=== PATIENT | male | born 1970 | race Caucasian/White ===

== ENCOUNTER 2016-09-04 10:45 | Emergency (ER) | payer BC, MEDICAID, SELFPAY ==
--- NOTE | 2016-09-04 12:20 | EDDOCDS ---
Nurse's Notes [facility] Name: Celso Caicedo Age: 46 yrs Sex: Male : 1970 Arrival Date: 09/04/2016 Time: 10:45 Bed I5 / M5 Private MD: Eliza Olvera PA-C. Diagnosis: Injury of muscle, fascia and tendon of long head of biceps-clinical tendon rupture Presentation: 09/04 10:50 Presenting complaint: Patient states: injured right bicep this am lifting on heavy j tire. has swelling on bicep. denies other injuries. hurts to move arm. Adult Sepsis Screening: The patient does not have new or worsening altered mentation. Patient's respiratory rate is less than 22. Systolic blood pressure is greater than 100. Patient has a qSOFA score of 0- Negative Sepsis Screen. Suicide/Homicide risk assessment- the patient denies having any suicidal and/or homicidal ideations and does not present with any other emotional, behavioral or mental health complaints. Status: Patient is not a atm servicer or dependent. Transition of care: patient was not received from another setting of care. 10:50 Acuity: SOL Level 4 bcj 10:50 Method Of Arrival: Walkin/Carried/Asstd bcj Triage Assessment: 10:53 General: Appears in no apparent distress, comfortable, Behavior is cooperative. Pain: bcj Location: right arm Pain currently is 8 out of 10 on a pain scale. HIV screening NA for this visit Offered previously. Musculoskeletal: Circulation, motion, and sensation intact. Historical: - Allergies: no known allergies; - Home Meds: 1. none - PMHx: none; - PSHx: none; - Social history: Smoking status: Patient states was never smoker of tobacco. No barriers to communication noted, The patient speaks fluent Yakut, Speaks appropriately for age. - Family history: Not pertinent. - : The pt / caregiver states he / she is not on anticoagulants. Home medication list is obtained from the patient. - Exposure Risk Screening:: None identified. Screenin:42 Screening information is obtained from the patient. Fall risk: No risks identified. kr3 Assistance ADL's: requires no assistance with activities of daily living. Abuse/DV Screen: The patient / caregiver reports he/she is: not in a situation that causes fear, pain or injury. Nutritional screening: No deficits noted. Advance Directives: Currently, there is no health care proxy. home support is adequate. Assessment: 11:42 General: Appears uncomfortable, Behavior is cooperative. Pain: Location: right bicep kr3 Pain currently is 8 out of 10 on a pain scale. Neurological: No deficits noted. Respiratory: Respiratory effort is even, unlabored. Derm: Skin is normal. Musculoskeletal: Range of motion intact in all extremities. CSM intact right hand. 12:17 General: Appears arm sling applied. 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 encouraged little use of arm jmk with NO lifting. . Vital Signs: 10:47 BP 152 / 93; Pulse 88; Resp 18; Temp 96.0; Pulse Ox 100% ; Weight 120.2 kg; Height 6 elp ft. 0 in. (182.88 cm); Pain 8/10; 12:15 BP 143 / 83; Pulse 86; Resp 18; Temp 98.1(O); Pulse Ox 94% on R/A; Pain 3/10; dem1 10:47 Body Mass Index 35.94 (120.20 kg, 182.88 cm) [facility] Vitals: 10:47 Log In Time: September 04, 2016 at 10:45. [facility] ED Course: 10:46 Patient visited by Penny Ochoa PCA. elp 10:46 Eliza Olvera is Private Physician. elp 10:46 Patient moved to Waiting elp 10:47 Patient visited by Penny Ochoa PCA. elp 10:47 Patient moved to Pre RCE elp 10:52 Triage Initiated bcj 10:53 Patient visited by Ralf Mathews RN. bcj 11:24 Patient moved to Triage 2 ct3 11:28 [facility] ar2 11:29 Eron Villalobos MD is Attending Physician. ar2 11:29 Patient visited by Kemar Snyder PA-C. ar2 11:38 Patient moved to I5 / M5 rs3 11:43 The patient / caregiver is instructed regarding the plan of care and ED course. kr3 Accompanied by Family Member, Patient has correct armband on for positive identification. Placed in gown. Bed in low position. Call light in reach. Side rails up X 1. 12:08 Hernan Arellano is Referral Physician. ar2 12:15 Sling applied to right arm. dem1 12:16 Patient visited by Jerri Montana. dem1 12:17 No IV's were initiated during this patient's visit. No procedures done that require jmk assistance. Order Results: There are currently no results for this order. Outcome: 12:09 Discharge ordered by Provider. ar2 12:17 Discharge Assessment: Patient awake, alert and oriented x 3. No cognitive and/or jmk functional deficits noted. Patient verbalized understanding of disposition instructions. patient administered narcotics - no. The following High Risk Discharge criteria are identified: None. Condition: good. Discharge instructions given to patient, Instructed on discharge instructions, follow up and referral plans. medication usage, Demonstrated understanding of instructions, medications, Pt was receptive of discharge instructions/ teaching. No special radiology studies were completed. Property :Personal belongings accompany Pt. 12:18 Patient left the ED. k Signatures: Ralf Mathews, RN RN David MunozRN RN Stephanie Fitzgerald RN RN kr3 Kemar Snyder, PA-Milo PA-Milo ar2 Bhargavi Howe,RN RN rs3 Kori Maldonado, ROUTE CARRIER ROUTE CARRIER ct3 Jerri Montana dem1 Penny Ochoa, ROUTE CARRIER ROUTE CARRIER elp MTDD
--- NOTE | 2016-09-04 12:20 | EDDOCDS ---
Physician Documentation [facility] Name: Celso Caicedo Age: 46 yrs Sex: Male : 1970 Arrival Date: 09/04/2016 Time: 10:45 Bed I5 / M5 Private MD: Eliza Olvera PA-C. Disposition: 09/04/16 12:09 Discharged to Home/Self Care. Impression: Injury of muscle, fascia and tendon of long head of biceps - clinical tendon rupture. - Condition is Stable. - Discharge Instructions: Tendon Injury, Arm Sling Use, [id number]. - Medication Reconciliation, Local Pharmacy Hours form. - Follow up: Hernan Arellano; When: Call to arrange an appointment; Reason: Further diagnostic work-up, Recheck today's complaints. - Problem is new. - Symptoms are unchanged. - Notes: keep arm in sling, call orthopedic office today to schedule follow up early next week. NO LIFTING WITH RIGHT ARM. Historical: - Allergies: no known allergies; - Home Meds: 1. none - PMHx: none; - PSHx: none; - Social history: Smoking status: Patient states was never smoker of tobacco. No barriers to communication noted, The patient speaks fluent Icelandic, Speaks appropriately for age. - Family history: Not pertinent. - : The pt / caregiver states he / she is not on anticoagulants. Home medication list is obtained from the patient. - Exposure Risk Screening:: None identified. Vital Signs: 09/04 10:47 BP 152 / 93; Pulse 88; Resp 18; Temp 96.0; Pulse Ox 100% ; Weight 120.2 kg / 265 lbs; elp Height 6 ft. 0 in. (182.88 cm); Pain 8/10; 12:15 BP 143 / 83; Pulse 86; Resp 18; Temp 98.1(O); Pulse Ox 94% on R/A; Pain 3/10; dem1 10:47 Body Mass Index 35.94 (120.20 kg, 182.88 cm) elp MDM: 11:39 NOTHING BY MOUTH+DIET ordered. EDMS 11:53 Sling ordered. ar2 Signatures: Dispatcher [employer] EDMS Ralf Mathews RN RN David Munoz RN RN jmk Robertshaw, Kemar, PA-C PA-C ar2 MTDD
--- NOTE | 2016-09-06 13:19 | EDDOCDS ---
Nurse's Notes [facility] Name: Celso Caicedo Age: 46 yrs Sex: Male : 1970 Arrival Date: 09/04/2016 Time: 10:45 Bed I5 / M5 Private MD: Eliza Olvera PA-C. Diagnosis: Injury of muscle, fascia and tendon of long head of biceps-clinical tendon rupture Presentation: 09/04 10:50 Presenting complaint: Patient states: injured right bicep this am lifting on heavy j tire. has swelling on bicep. denies other injuries. hurts to move arm. Adult Sepsis Screening: The patient does not have new or worsening altered mentation. Patient's respiratory rate is less than 22. Systolic blood pressure is greater than 100. Patient has a qSOFA score of 0- Negative Sepsis Screen. Suicide/Homicide risk assessment- the patient denies having any suicidal and/or homicidal ideations and does not present with any other emotional, behavioral or mental health complaints. 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 Transition of care: patient was not received from another setting of care. 10:50 Acuity: SOL Level 4 bcj 10:50 Method Of Arrival: Walkin/Carried/Asstd bcj Triage Assessment: 10:53 General: Appears in no apparent distress, comfortable, Behavior is cooperative. Pain: bcj Location: right arm Pain currently is 8 out of 10 on a pain scale. HIV screening NA for this visit Offered previously. Musculoskeletal: Circulation, motion, and sensation intact. Historical: - Allergies: no known allergies; - Home Meds: 1. none - PMHx: none; - PSHx: none; - Social history: Smoking status: Patient states was never smoker of tobacco. No barriers to communication noted, The patient speaks fluent Syriac, Speaks appropriately for age. - Family history: Not pertinent. - : The pt / caregiver states he / she is not on anticoagulants. Home medication list is obtained from the patient. - Exposure Risk Screening:: None identified. Screenin:42 Screening information is obtained from the patient. Fall risk: No risks identified. kr3 Assistance ADL's: requires no assistance with activities of daily living. Abuse/DV Screen: The patient / caregiver reports he/she is: not in a situation that causes fear, pain or injury. Nutritional screening: No deficits noted. Advance Directives: Currently, there is no health care proxy. home support is adequate. Assessment: 11:42 General: Appears uncomfortable, Behavior is cooperative. Pain: Location: right bicep kr3 Pain currently is 8 out of 10 on a pain scale. Neurological: No deficits noted. Respiratory: Respiratory effort is even, unlabored. Derm: Skin is normal. Musculoskeletal: Range of motion intact in all extremities. CSM intact right hand. 12:17 General: Appears arm sling applied. MDM SR ;ess than 2 sec. encouraged little use of arm jmk with NO lifting. . Vital Signs: 10:47 BP 152 / 93; Pulse 88; Resp 18; Temp 96.0; Pulse Ox 100% ; Weight 120.2 kg; Height 6 elp ft. 0 in. (182.88 cm); Pain 8/10; 12:15 BP 143 / 83; Pulse 86; Resp 18; Temp 98.1(O); Pulse Ox 94% on R/A; Pain 3/10; dem1 10:47 Body Mass Index 35.94 (120.20 kg, 182.88 cm) [facility] Vitals: 10:47 Log In Time: September 04, 2016 at 10:45. [facility] ED Course: 10:46 Patient visited by Penny Ochoa PCA. elp 10:46 Eliza Olvera is Private Physician. elp 10:46 Patient moved to Waiting elp 10:47 Patient visited by Penny Ochoa PCA. elp 10:47 Patient moved to Pre RCE elp 10:52 Triage Initiated bcj 10:53 Patient visited by Ralf Mathews RN. bcj 11:24 Patient moved to Triage 2 ct3 11:28 [facility] Snyder [facility] ar2 11:29 Eron Villalobos MD is Attending Physician. ar2 11:29 Patient visited by Kemar Snyder PA-C. ar2 11:38 Patient moved to I5 / M5 rs3 11:43 The patient / caregiver is instructed regarding the plan of care and ED course. kr3 Accompanied by Family Member, Patient has correct armband on for positive identification. Placed in gown. Bed in low position. Call light in reach. Side rails up X 1. 12:08 Hernan Arellano is Referral Physician. ar2 12:15 Sling applied to right arm. dem1 12:16 Patient visited by Jerri Montana. dem1 12:17 No IV's were initiated during this patient's visit. No procedures done that require jmk assistance. 12:39 Patient name changed from Celso\S\\S\Caicedo\S\ to Celso\S\ \S\Caicedo. EDMS 12:40 [place] [place] was scanned into [employer] and attached to record. lg 14:26 T-Sheet-- Draft Copy was scanned into [employer] and attached to record. gb Order Results: There are currently no results for this order. Outcome: 12:09 Discharge ordered by Provider. ar2 12:17 Discharge Assessment: Patient awake, alert and oriented x 3. No cognitive and/or jmk functional deficits noted. Patient verbalized understanding of disposition instructions. patient administered narcotics - no. The following High Risk Discharge criteria are identified: None. Condition: good. Discharge instructions given to patient, Instructed on discharge instructions, follow up and referral plans. medication usage, Demonstrated understanding of instructions, medications, Pt was receptive of discharge instructions/ teaching. No special radiology studies were completed. Property :Personal belongings accompany Pt. 12:18 Patient left the ED. jorgek Signatures: Dispatcher [employer] EDIA Ralf Mathews, RN RN David Munoz,RN RN Lisa Menjivar, Reg Reg gb Chanell Harrison, Reg Reg lg Stephanie Gallo,RN RN kr3 Kemar Snyder, PA-C PA-C ar2 Bhargavi Howe,RN RN rs3 Kori Maldonado, ASSISTANT CLINICAL DIRECTOR ASSISTANT CLINICAL DIRECTOR ct3 Jerri Montana dem1 Patchen, Penny, ASSISTANT CLINICAL DIRECTOR ASSISTANT CLINICAL DIRECTOR elp Chart Complete MTDD
--- NOTE | 2016-09-06 13:19 | EDDOCDS ---
Physician Documentation [facility] Name: Celso Caicedo Age: 46 yrs Sex: Male : 1970 Arrival Date: 09/04/2016 Time: 10:45 Bed I5 / M5 Private MD: Eliza Olvera PA-C. Disposition: 09/04/16 12:09 Discharged to Home/Self Care. Impression: Injury of muscle, fascia and tendon of long head of biceps - clinical tendon rupture. - Condition is Stable. - Discharge Instructions: Tendon Injury, Arm Sling Use, Hypt-[id number]-Ohqi. - Medication Reconciliation, Local Pharmacy Hours form. - Follow up: Hernan Arellano; When: Call to arrange an appointment; Reason: Further diagnostic work-up, Recheck today's complaints. - Problem is new. - Symptoms are unchanged. - Notes: keep arm in sling, call orthopedic office today to schedule follow up early next week. NO LIFTING WITH RIGHT ARM. Historical: - Allergies: no known allergies; - Home Meds: 1. none - PMHx: none; - PSHx: none; - Social history: Smoking status: Patient states was never smoker of tobacco. No barriers to communication noted, The patient speaks fluent Paraguayan, Speaks appropriately for age. - Family history: Not pertinent. - : The pt / caregiver states he / she is not on anticoagulants. Home medication list is obtained from the patient. - Exposure Risk Screening:: None identified. Vital Signs: 09/04 10:47 BP 152 / 93; Pulse 88; Resp 18; Temp 96.0; Pulse Ox 100% ; Weight 120.2 kg / 265 lbs; elp Height 6 ft. 0 in. (182.88 cm); Pain 8/10; 12:15 BP 143 / 83; Pulse 86; Resp 18; Temp 98.1(O); Pulse Ox 94% on R/A; Pain 3/10; dem1 10:47 Body Mass Index 35.94 (120.20 kg, 182.88 cm) elp MDM: 11:39 NOTHING BY MOUTH+DIET ordered. EDMS 11:53 Sling ordered. ar2 12:40 [facility] [place] Payment Agreement was scanned into [employer] and attached to record. lg 14:26 T-Sheet-- Draft Copy was scanned into [employer] and attached to record. gb Signatures: Dispatcher [employer] Ralf Gonzalez, RN RN David Munoz,RN RN Lisa Menjivar, Reg Reg gb Chanell Harrison, Reg Reg lg Kemar Snyder, PORSHA [email or web address] The chart was reviewed and I authenticate all verbal orders and agree with the evaluation and treatment provided.Attachments: 12:40 [facility] [place] Payment Agreement lg 14:26 T-Sheet-- Draft Copy gb Chart Complete MTDD
--- NOTE | 2016-09-06 13:19 | EDDOCDS ---
Physician Documentation [facility] Name: Celso Caicedo Age: 46 yrs Sex: Male : 1970 Arrival Date: 09/04/2016 Time: 10:45 Bed I5 / M5 Private MD: Eliza Olvera PA-C. Disposition: 09/04/16 12:09 Discharged to Home/Self Care. Impression: Injury of muscle, fascia and tendon of long head of biceps - clinical tendon rupture. - Condition is Stable. - Discharge Instructions: Tendon Injury, Arm Sling Use, [id number]-mx-[id number]. - Medication Reconciliation, Local Pharmacy Hours form. - Follow up: Hernan Arellano; When: Call to arrange an appointment; Reason: Further diagnostic work-up, Recheck today's complaints. - Problem is new. - Symptoms are unchanged. - Notes: keep arm in sling, call orthopedic office today to schedule follow up early next week. NO LIFTING WITH RIGHT ARM. Historical: - Allergies: no known allergies; - Home Meds: 1. none - PMHx: none; - PSHx: none; - Social history: Smoking status: Patient states was never smoker of tobacco. No barriers to communication noted, The patient speaks fluent Surinamese, Speaks appropriately for age. - Family history: Not pertinent. - : The pt / caregiver states he / she is not on anticoagulants. Home medication list is obtained from the patient. - Exposure Risk Screening:: None identified. Vital Signs: 09/04 10:47 BP 152 / 93; Pulse 88; Resp 18; Temp 96.0; Pulse Ox 100% ; Weight 120.2 kg / 265 lbs; elp Height 6 ft. 0 in. (182.88 cm); Pain 8/10; 12:15 BP 143 / 83; Pulse 86; Resp 18; Temp 98.1(O); Pulse Ox 94% on R/A; Pain 3/10; dem1 10:47 Body Mass Index 35.94 (120.20 kg, 182.88 cm) elp MDM: 11:39 NOTHING BY MOUTH+DIET ordered. EDMS 11:53 Sling ordered. ar2 12:40 [place] Payment Agreement was scanned into [employer] and attached to record. lg 14:26 T-Sheet-- Draft Copy was scanned into [employer] and attached to record. gb Signatures: Dispatcher [employer] Ralf Gonzalez, RN RN David Munoz,RN RN Lisa Menjivar, Reg Reg gb Chanell Harrison, Reg Reg lg Kemar Snyder, PORSHA [email or web address] The chart was reviewed and I authenticate all verbal orders and agree with the evaluation and treatment provided.Attachments: 12:40 [facility] Payment Agreement lg 14:26 T-Sheet-- Draft Copy gb Chart Complete MTDD
== END 2016-09-04 12:18 | disposition home or self-care (01) ==
LOC: M ED 10:45
DX: S46.119A Strain of muscle, fascia and tendon of long head of biceps, unspecified arm, initial encounter (principal); X50.0XXD Overexertion from strenuous movement or load, subsequent encounter; Y92.89 Other specified places as the place of occurrence of the external cause; Y93.89 Activity, other specified; Y99.0 Civilian activity done for income or pay

== ENCOUNTER → 2018-02-15 | Outpatient (REF) | payer OTHER ==
[2018-02-15 12:08] LABS: CONTROL LINE HPYORI INT CTR LINE PRESENT; H PYLORI QUALITATIVE IgG NEGATIVE (NEGATIVE)
[2018-02-15 12:33] LABS: ALBUMIN 3.5 GM/DL (3.2-5.2); ALBUMIN/GLOBULIN RATIO 0.97 (1.00-1.93); ALKALINE PHOSPHATASE 50 U/L (45-117); ALT/SGPT 27 U/L (12-78); ANION GAP 8 MEQ/L (8-16); AST/SGOT 13 U/L (7-37); BILIRUBIN,TOTAL 0.3 MG/DL (0.2-1.0); BLOOD UREA NITROGEN 15 MG/DL (7-18); CALCIUM LEVEL 8.6 MG/DL (8.5-10.1); CARBON DIOXIDE LEVEL 30 MEQ/L (21-32); CHLORIDE LEVEL 99 MEQ/L (98-107); CHOLESTEROL LEVEL 202 MG/DL (<200); CHOLESTEROL RISK RATIO 7.214 (<5); CREATININE FOR GFR 0.84 MG/DL (0.70-1.30); GLOMERULAR FILTRATION RATE > 60.0 (>60); GLUCOSE, FASTING 269 MG/DL (70-100); HDL CHOLESTEROL 28 MG/DL (>40); NON-HDL-C 174 MG/DL; POTASSIUM SERUM 4.6 MEQ/L (3.5-5.1); SODIUM LEVEL 137 MEQ/L (136-145); TOTAL PROTEIN 7.1 GM/DL (6.4-8.2); TRIGLYCERIDES LEVEL 650 MG/DL (<150)
[2018-02-15 14:05] LABS: ESTIMATED AVERAGE GLUCOSE 232 MG/DL (60-110); HEMOGLOBIN A1c 9.7 %
== END ==
LOC: M LABDRAW1 08:01
DX: K21.9 Gastro-esophageal reflux disease without esophagitis (principal); E11.65 Type 2 diabetes mellitus with hyperglycemia; E78.2 Mixed hyperlipidemia
CPT/HCPCS: 80053

== ENCOUNTER → 2018-03-22 | Outpatient (CLI) | payer OTHER | LOC: M RAD 07:14 | DX: Z80.0 Family history of malignant neoplasm of digestive organs (principal); R11.10 Vomiting, unspecified ==

== ENCOUNTER 2018-03-30 08:06 | Day surgery (SDC) | payer OTHER ==
[2018-03-30] MEDS: NS 1,000 ML IV (06:00)
[~2018-03-30 08:06] MED LIST: LIDOCAINE 2% MDV 20 ML VIAL As Ordered; PROPOFOL 200 MG/20 ML VIAL As Ordered
[2018-03-30] MEDS ORDERED: fentaNYL 100 MCG/2 ML INJECTION (J3010) As Ordered (09:16)
== END 2018-03-30 10:19 | disposition home or self-care (01) ==
LOC: M OPP 08:06
DX: Z12.11 Encounter for screening for malignant neoplasm of colon (principal); K64.0 First degree hemorrhoids; D12.0 Benign neoplasm of cecum; D12.3 Benign neoplasm of transverse colon; Z80.0 Family history of malignant neoplasm of digestive organs; K21.9 Gastro-esophageal reflux disease without esophagitis; E11.9 Type 2 diabetes mellitus without complications; E78.00 Pure hypercholesterolemia, unspecified; M51.36 Other intervertebral disc degeneration, lumbar region; Z79.84 Long term (current) use of oral hypoglycemic drugs; Z79.899 Other long term (current) drug therapy
CPT/HCPCS: 45385

== ENCOUNTER → 2018-05-27 | Outpatient (CLI) | payer OTHER ==
[2018-05-27 13:09] LABS: ALBUMIN/GLOBULIN RATIO 1.18 (1.00-1.93); ALKALINE PHOSPHATASE 47 U/L (45-117); ALT/SGPT 34 U/L (12-78); ANION GAP 8 MEQ/L (8-16); AST/SGOT 23 U/L (7-37); BILIRUBIN,TOTAL 0.4 MG/DL (0.2-1.0); BLOOD UREA NITROGEN 17 MG/DL (7-18); CALCIUM LEVEL 9.6 MG/DL (8.5-10.1); CARBON DIOXIDE LEVEL 33 MEQ/L (21-32); CHLORIDE LEVEL 98 MEQ/L (98-107); CHOLESTEROL LEVEL 131 MG/DL (<200); CHOLESTEROL RISK RATIO 2.568 (<5); GLOMERULAR FILTRATION RATE > 60.0 (>60); GLUCOSE, FASTING 217 MG/DL (70-100); HDL CHOLESTEROL 51 MG/DL (>40); LDL CHOLESTEROL 48 MG/DL (<100); NON-HDL-C 80 MG/DL; POTASSIUM SERUM 4.5 MEQ/L (3.5-5.1); SODIUM LEVEL 139 MEQ/L (136-145); TOTAL PROTEIN 7.4 GM/DL (6.4-8.2); TRIGLYCERIDES LEVEL 158 MG/DL (<150)
[2018-05-27 13:16] LABS: ESTIMATED AVERAGE GLUCOSE 192 MG/DL (60-110); HEMOGLOBIN A1c 8.3 %
== END ==
LOC: M ADAMS 10:32
DX: E11.65 Type 2 diabetes mellitus with hyperglycemia (principal); E78.2 Mixed hyperlipidemia
CPT/HCPCS: 80053

== ENCOUNTER → 2018-10-13 | Outpatient (REF) | payer OTHER ==
[~2018-10-13] MED LIST changes: +ATOR1TAB21 PO; -LIDOCAINE 2% MDV 20 ML VIAL As Ordered; +METF500T4 PO; +OMEP40CA2 PO; -PROPOFOL 200 MG/20 ML VIAL As Ordered
[2018-10-13 20:26] LABS: ALBUMIN 3.9 GM/DL (3.2-5.2); ALT/SGPT 28 U/L (12-78); BILIRUBIN,TOTAL 0.9 MG/DL (0.2-1.0); BLOOD UREA NITROGEN 13 MG/DL (7-18); CALCIUM LEVEL 9.2 MG/DL (8.5-10.1); CARBON DIOXIDE LEVEL 31 MEQ/L (21-32); CHLORIDE LEVEL 97 MEQ/L (98-107); CHOLESTEROL LEVEL 127 MG/DL (<200); CREATININE FOR GFR 0.86 MG/DL (0.70-1.30); GLOMERULAR FILTRATION RATE > 60.0 (>60); GLUCOSE, FASTING 114 MG/DL (70-100); HDL CHOLESTEROL 51 MG/DL (>40); LDL CHOLESTEROL 58 MG/DL (<100); NON-HDL-C 76 MG/DL; POTASSIUM SERUM 3.8 MEQ/L (3.5-5.1); SODIUM LEVEL 136 MEQ/L (136-145); TOTAL PROTEIN 7.3 GM/DL (6.4-8.2); TRIGLYCERIDES LEVEL 90 MG/DL (<150)
[2018-10-13 20:27] LABS: HEMOGLOBIN A1c 8.2 %
== END ==
LOC: M LABDRWAD 19:19
PROVIDERS: ATTEND Emergency Medicine
DX: E11.65 Type 2 diabetes mellitus with hyperglycemia (principal); E78.2 Mixed hyperlipidemia

== ENCOUNTER → 2019-08-14 | Outpatient (REF) | payer OTHER ==
[~2019-08-14] MED LIST changes: +METF-791 PO; -METF500T4 PO; -OMEP40CA2 PO; +OMEP40CA97 PO
[2019-08-14 12:55] LABS: BASO # 0.2 10^3/uL (0.0-0.2); BASO % 1.7 % (0.0-1.0); EOS # 0.4 10^3/uL (0.0-0.5); EOS % 4.3 % (0.0-3.0); HEMATOCRIT 54.4 % (42.0-52.0); HEMOGLOBIN 17.7 g/dl (13.5-17.5); LYMPH # 2.3 10^3/uL (1.5-5.0); MEAN CORPUSCULAR HEMOGLOBIN 30.8 pg (27.0-33.0); MEAN CORPUSCULAR HGB CONC 32.5 g/dl (32.0-36.5); MEAN CORPUSCULAR VOLUME 94.8 fl (80.0-96.0); MONO # 0.7 10^3/uL (0.0-0.8); MONO % 7.8 % (0.0-5.0); NEUTROPHILS # 5.9 10^3/uL (1.5-8.5); NEUTROPHILS % 61.7 % (36.0-66.0); PLATELET COUNT, AUTOMATED 283 10^3/uL (150-450); RED BLOOD COUNT 5.74 10^6/uL (4.30-6.10); WHITE BLOOD COUNT 9.5 10^3/uL (4.0-10.0)
[2019-08-14 13:25] LABS: ALBUMIN 3.9 GM/DL (3.2-5.2); ALT/SGPT 33 U/L (12-78); BILIRUBIN,TOTAL 0.5 MG/DL (0.2-1.0); BLOOD UREA NITROGEN 18 MG/DL (7-18); CALCIUM LEVEL 9.4 MG/DL (8.5-10.1); CARBON DIOXIDE LEVEL 30 MEQ/L (21-32); CHLORIDE LEVEL 97 MEQ/L (98-107); CHOLESTEROL LEVEL 182 MG/DL (<200); CHOLESTEROL RISK RATIO 4.333 (<5); CREATININE FOR GFR 1.02 MG/DL (0.70-1.30); FREE T4 1.15 NG/DL (0.76-1.46); GLOMERULAR FILTRATION RATE > 60.0 (>56); GLUCOSE, FASTING 306 MG/DL (70-100); HDL CHOLESTEROL 42 MG/DL (>40); LDL CHOLESTEROL 107 MG/DL (<100); NON-HDL-C 140 MG/DL; POTASSIUM SERUM 4.8 MEQ/L (3.5-5.1); SODIUM LEVEL 133 MEQ/L (136-145); TOTAL PROTEIN 7.7 GM/DL (6.4-8.2); TRIGLYCERIDES LEVEL 163 MG/DL (<150)
[2019-08-14 14:43] LABS: CREATININE, URINE 75.9 MG/DL; MAU/CREAT RATIO 397.8 MCG/MG (0.0-30.0)
[2019-08-14 14:47] LABS: HEMOGLOBIN A1c 10.7 %
== END ==
LOC: M SFHCADAM 10:29
PROVIDERS: ATTEND Physician Assistant Medical
DX: E11.69 Type 2 diabetes mellitus with other specified complication (principal); R06.09 Other forms of dyspnea; E66.01 Morbid (severe) obesity due to excess calories

== ENCOUNTER → 2019-08-28 | Outpatient (CLI) | payer BC, OTHER | LOC: M CARPUL 07:57 | PROVIDERS: ATTEND Physician Assistant Medical | DX: I48.11 Longstanding persistent atrial fibrillation (principal) ==

== ENCOUNTER → 2021-08-14 | Outpatient (REF) | payer OTHER ==
[~2021-08-14] MED LIST changes: -METF-791 PO; +METF-838 PO; +OMEP40CA4 PO; -OMEP40CA97 PO
[2021-08-14 14:07] LABS: BASO # 0.2 10^3/uL (0.0-0.2); BASO % 2.1 % (0.0-1.0); EOS # 0.6 10^3/uL (0.0-0.5); HEMATOCRIT 46.6 % (42.0-52.0); HEMOGLOBIN 15.8 g/dl (13.5-17.5); LYMPH # 2.7 10^3/uL (1.5-5.0); LYMPH % 33.1 % (24.0-44.0); MEAN CORPUSCULAR HEMOGLOBIN 31.8 pg (27.0-33.0); MEAN CORPUSCULAR HGB CONC 33.9 g/dl (32.0-36.5); MEAN CORPUSCULAR VOLUME 93.8 fl (80.0-96.0); MONO # 0.9 10^3/uL (0.0-0.8); MONO % 10.9 % (2.0-8.0); NEUTROPHILS # 3.9 10^3/uL (1.5-8.5); NEUTROPHILS % 46.7 % (36.0-66.0); PLATELET COUNT, AUTOMATED 298 10^3/uL (150-450); RED BLOOD COUNT 4.97 10^6/uL (4.30-6.10); WHITE BLOOD COUNT 8.3 10^3/uL (4.0-10.0)
[2021-08-14 14:41] LABS: ALBUMIN 3.4 GM/DL (3.2-5.2); ALT/SGPT 18 U/L (12-78); BILIRUBIN,TOTAL 0.4 MG/DL (0.2-1.0); BLOOD UREA NITROGEN 21 MG/DL (7-18); CALCIUM LEVEL 8.9 MG/DL (8.5-10.1); CARBON DIOXIDE LEVEL 32 MEQ/L (21-32); CHLORIDE LEVEL 99 MEQ/L (98-107); CHOLESTEROL LEVEL 159 MG/DL (<200); CHOLESTEROL RISK RATIO 4.184 (<5); CREATININE FOR GFR 1.01 MG/DL (0.70-1.30); GLOMERULAR FILTRATION RATE > 60.0 (>56); GLUCOSE, FASTING 227 MG/DL (70-100); HDL CHOLESTEROL 38 MG/DL (>40); LDL CHOLESTEROL 99 MG/DL (<100); NON-HDL-C 121 MG/DL; POTASSIUM SERUM 4.5 MEQ/L (3.5-5.1); SODIUM LEVEL 134 MEQ/L (136-145); TOTAL PROTEIN 6.5 GM/DL (6.4-8.2); TRIGLYCERIDES LEVEL 111 MG/DL (<150)
[2021-08-14 14:57] LABS: HEMOGLOBIN A1c 9.7 %
== END ==
LOC: M SFHCADAM 08:16
PROVIDERS: ATTEND Physician Assistant Medical
DX: E11.69 Type 2 diabetes mellitus with other specified complication (principal); E66.01 Morbid (severe) obesity due to excess calories; E78.2 Mixed hyperlipidemia

== ENCOUNTER → 2023-04-21 | Outpatient (REF) | payer BC ==
[~2023-04-21] MED LIST changes: +AMIO200T37 PO; +METF10004 PO; +METO1TAB33 PO; +PANT40TA29 PO; +XARE20TA PO
[2023-04-21 14:16] LABS: HEMATOCRIT 43.4 % (42.0-52.0); HEMOGLOBIN 14.6 g/dl (13.5-17.5); MEAN CORPUSCULAR HEMOGLOBIN 33.2 pg (27.0-33.0); MEAN CORPUSCULAR HGB CONC 33.6 g/dl (32.0-36.5); MEAN CORPUSCULAR VOLUME 98.6 fl (80.0-96.0); PLATELET COUNT, AUTOMATED 367 10^3/uL (150-450); WHITE BLOOD COUNT 9.5 10^3/uL (4.0-10.0)
[2023-04-21 14:36] LABS: ALBUMIN 3.5 G/DL (3.2-5.2); ALKALINE PHOSPHATASE 51 U/L (46-116); ALT/SGPT 13 U/L (7.0-40); AST/SGOT 13 U/L (<34); BILIRUBIN,TOTAL 0.7 MG/DL (0.3-1.2); BLOOD UREA NITROGEN 16 MG/DL (9-23); CALCIUM LEVEL 9.6 MG/DL (8.5-10.1); CARBON DIOXIDE LEVEL 29 MMOL/L (20-31); CHLORIDE LEVEL 104 MMOL/L (98-107); CHOLESTEROL LEVEL 213 MG/DL (<200); CHOLESTEROL RISK RATIO 5.51 (<5); CREATININE FOR GFR 0.99 MG/DL (0.70-1.30); GLOMERULAR FILTRATION RATE > 60.0 (>56); GLUCOSE, FASTING 165 MG/DL (60-100); HDL CHOLESTEROL 38.6 MG/DL (>40); LDL CHOLESTEROL 123.6 MG/DL (<100); NON-HDL-C 174.4 MG/DL; POTASSIUM SERUM 4.5 MMOL/L (3.5-5.1); SODIUM LEVEL 137 MMOL/L (136-145); TOTAL PROTEIN 6.8 G/DL (5.7-8.2); TRIGLYCERIDES LEVEL 254 MG/DL (<150)
[2023-04-21 14:39] LABS: THYROID STIMULATING HORMONE 2.485 uIU/ML (0.55-4.78); TOTAL 25(OH) VITAMIN D 22.5 NG/ML (20.0-100.0)
== END ==
LOC: M SFHCADAM 07:39
PROVIDERS: ATTEND Physician Assistant Medical
DX: E11.42 Type 2 diabetes mellitus with diabetic polyneuropathy (principal); E78.2 Mixed hyperlipidemia

== ENCOUNTER 2023-06-21 08:44 | Day surgery (SDC) | payer BC ==
[~2023-06-21] VITALS: Ht 182.9 cm; Wt 93.3 kg
[~2023-06-21 08:44] MED LIST changes: +ENTR1TAB PO; +LASI20TA3 PO; +NS 1,000 ML IV ONE; +PROT1TAB2 PO; +VITMTA PO
[2023-06-21] MEDS ORDERED: propofoL 200 MG/20 ML VIAL As Ordered ONE ×2 (09:58→10:35)
[2023-06-21] MEDS ORDERED: LIDOCAINE 2% 100MG/5ML SDV (FOR ANES.) As Ordered ONE (09:58)
[2023-06-21 10:48] VITALS: TEMP 97.2
[2023-06-21 11:00] VITALS: BP 144/76; O2SAT 93
== END 2023-06-21 11:11 | disposition home or self-care (01) ==
LOC: M OPP 08:44
PROVIDERS: ATTEND Internal Medicine Gastroenterology
DX: Z12.11 Encounter for screening for malignant neoplasm of colon (principal); D12.6 Benign neoplasm of colon, unspecified; K64.4 Residual hemorrhoidal skin tags; K64.8 Other hemorrhoids; K29.70 Gastritis, unspecified, without bleeding; K31.89 Other diseases of stomach and duodenum; I48.91 Unspecified atrial fibrillation; I50.9 Heart failure, unspecified; E11.9 Type 2 diabetes mellitus without complications; Z79.01 Long term (current) use of anticoagulants; Z79.02 Long term (current) use of antithrombotics/antiplatelets; Z79.83 Long term (current) use of bisphosphonates; Z79.84 Long term (current) use of oral hypoglycemic drugs; Z79.899 Other long term (current) drug therapy

== ENCOUNTER → 2023-09-15 | Outpatient (REF) | payer BC ==
[~2023-09-15] MED LIST changes: -NS 1,000 ML IV ONE
== END ==
LOC: M SFHCADAM 12:33
PROVIDERS: ATTEND Physician Assistant Medical
DX: L02.91 Cutaneous abscess, unspecified (principal); S61.402A Unspecified open wound of left hand, initial encounter; W18.30XA Fall on same level, unspecified, initial encounter; Y92.009 Unspecified place in unspecified non-institutional (private) residence as the place of occurrence of the external cause

== ENCOUNTER → 2023-09-16 | Outpatient (CLI) | payer BC ==
[~2023-09-16] MED LIST changes: +PROHANCE 279.3MG/ML 15ML VIAL ONE; +PROHANCE 279.3MG/ML 5ML VIAL ONE
== END ==
LOC: M PLAIMG 11:15
PROVIDERS: ATTEND Physician Assistant Medical
DX: L02.91 Cutaneous abscess, unspecified (principal)
CPT/HCPCS: 73220; A9576

== ENCOUNTER → 2024-04-25 | Outpatient (REF) | payer BC ==
[~2024-04-25] MED LIST changes: -PROHANCE 279.3MG/ML 15ML VIAL ONE; -PROHANCE 279.3MG/ML 5ML VIAL ONE
[2024-04-25 18:03] LABS: BASO # 0.2 10^3/uL (0.0-0.2); BASO % 1.5 % (0.0-1.0); EOS # 0.3 10^3/uL (0.0-0.5); EOS % 2.8 % (0.0-3.0); HEMATOCRIT 40.3 % (42.0-52.0); HEMOGLOBIN 13.4 g/dl (13.5-17.5); LYMPH # 2.6 10^3/uL (1.5-5.0); LYMPH % 25.1 % (24.0-44.0); MEAN CORPUSCULAR HEMOGLOBIN 32.1 pg (27.0-33.0); MEAN CORPUSCULAR HGB CONC 33.3 g/dl (32.0-36.5); MEAN CORPUSCULAR VOLUME 96.4 fl (80.0-96.0); MONO # 0.9 10^3/uL (0.0-0.8); MONO % 8.5 % (2.0-8.0); NEUTROPHILS # 6.3 10^3/uL (1.5-8.5); NEUTROPHILS % 61.6 % (36.0-66.0); PLATELET COUNT, AUTOMATED 370 10^3/uL (150-450); RED BLOOD COUNT 4.18 10^6/uL (4.30-6.10); WHITE BLOOD COUNT 10.2 10^3/uL (4.0-10.0)
[2024-04-25 18:31] LABS: ALBUMIN 3.9 G/DL (3.2-5.2); ALKALINE PHOSPHATASE 50 U/L (46-116); ALT/SGPT 19 U/L (7.0-40); AST/SGOT 14 U/L (<34); BILIRUBIN,TOTAL 0.8 MG/DL (0.3-1.2); BLOOD UREA NITROGEN 20 MG/DL (9-23); CARBON DIOXIDE LEVEL 31 MMOL/L (20-31); CHLORIDE LEVEL 104 MMOL/L (98-107); CHOLESTEROL LEVEL 160 MG/DL (<200); CHOLESTEROL RISK RATIO 3.44 (<5); CREATININE FOR GFR 1.07 MG/DL (0.70-1.30); GLOMERULAR FILTRATION RATE > 60.0 (>56); GLUCOSE, FASTING 141 MG/DL (60-100); HDL CHOLESTEROL 46.5 MG/DL (>40); LDL CHOLESTEROL 73.7 MG/DL (<100); NON-HDL-C 113.5 MG/DL; POTASSIUM SERUM 4.7 MMOL/L (3.5-5.1); SODIUM LEVEL 138 MMOL/L (136-145); TOTAL PROTEIN 7.4 G/DL (5.7-8.2); TRIGLYCERIDES LEVEL 199 MG/DL (<150)
[2024-04-25 18:32] LABS: THYROID STIMULATING HORMONE 0.846 uIU/ML (0.55-4.78)
[2024-04-25 19:12] LABS: HEMOGLOBIN A1c 7.3 % (4.0-6.0)
== END ==
LOC: M SFHCADAM 15:18
PROVIDERS: ATTEND Physician Assistant Medical
DX: E11.69 Type 2 diabetes mellitus with other specified complication (principal); E66.01 Morbid (severe) obesity due to excess calories; E78.2 Mixed hyperlipidemia

== ENCOUNTER → 2024-08-24 | Outpatient (CLI) | payer BC ==
[2024-08-24 14:55] LABS: CALCIUM LEVEL 9.6 MG/DL (8.5-10.1); CREATININE FOR GFR 1.91 MG/DL (0.70-1.30); GLOMERULAR FILTRATION RATE 39.1 (>56); POTASSIUM SERUM 4.5 MMOL/L (3.5-5.1)
== END ==
LOC: M RAD 14:00
PROVIDERS: ATTEND Physician Assistant
DX: R22.1 Localized swelling, mass and lump, neck (principal); M43.6 Torticollis; M54.2 Cervicalgia

== ENCOUNTER → 2025-05-01 | Outpatient (REF) | payer BC ==
[2025-05-01 14:59] LABS: BASO # 0.1 10^3/uL (0.0-0.2); BASO % 1.2 % (0.0-1.0); EOS # 0.3 10^3/uL (0.0-0.5); EOS % 2.6 % (0.0-3.0); LYMPH # 1.9 10^3/uL (1.5-5.0); LYMPH % 19.5 % (24.0-44.0); MONO # 0.7 10^3/uL (0.0-0.8); MONO % 6.8 % (2.0-8.0); NEUTROPHILS # 6.7 10^3/uL (1.5-8.5); NEUTROPHILS % 69.6 % (36.0-66.0); PLATELET COUNT, AUTOMATED 317 10^3/uL (150-450)
[2025-05-01 15:14] LABS: ESTIMATED AVERAGE GLUCOSE 163.0 MG/DL (60-110)
[2025-05-01 15:36] LABS: IRON (FE) 29.0 UG/DL (65-175); PERCENT SATURATION 9.3 % (19.7-50.0); TOTAL 25(OH) VITAMIN D 49.9 NG/ML (20.0-100.0); VITAMIN B12 LEVEL 540.0 PG/ML (211-911)
== END ==
LOC: M SFHCADAM 09:15
PROVIDERS: ATTEND Physician Assistant Medical
DX: E11.69 Type 2 diabetes mellitus with other specified complication (principal); E55.9 Vitamin D deficiency, unspecified; D64.9 Anemia, unspecified

== ENCOUNTER → 2025-05-15 | Outpatient (REF) | payer BC ==
[2025-05-15 18:26] LABS: CALCIUM LEVEL 8.9 MG/DL (8.5-10.1); CARBON DIOXIDE LEVEL 23.0 MMOL/L (20-31); CHLORIDE LEVEL 105.0 MMOL/L (98-107); CREATININE FOR GFR 2.55 MG/DL (0.70-1.30); GLOMERULAR FILTRATION RATE 28.9 (>56); MAGNESIUM LEVEL 1.1 MG/DL (1.8-2.4); POTASSIUM SERUM 5.7 MMOL/L (3.5-5.1); SODIUM LEVEL 134.0 MMOL/L (136-145)
== END ==
LOC: M SFHCADAM 11:48
PROVIDERS: ATTEND Physician Assistant Medical
DX: R19.7 Diarrhea, unspecified (principal)

== ENCOUNTER → 2025-05-21 | Outpatient (CLI) | payer BC ==
[2025-05-21 13:56] LABS: PLATELET COUNT, AUTOMATED 456 10^3/uL (150-450)
[2025-05-21 14:18] LABS: CALCIUM LEVEL 9.2 MG/DL (8.5-10.1); CARBON DIOXIDE LEVEL 26.0 MMOL/L (20-31); CHLORIDE LEVEL 104.0 MMOL/L (98-107); CREATININE FOR GFR 1.84 MG/DL (0.70-1.30); GLOMERULAR FILTRATION RATE 42.8 (>56); MAGNESIUM LEVEL 1.2 MG/DL (1.8-2.4); POTASSIUM SERUM 5.3 MMOL/L (3.5-5.1); SODIUM LEVEL 139.0 MMOL/L (136-145)
== END ==
LOC: M LABDRWAD 09:52
PROVIDERS: ATTEND Student in an Organized Health Care Education/Training Program
DX: N17.9 Acute kidney failure, unspecified (principal); E83.42 Hypomagnesemia

== ENCOUNTER → 2025-06-19 | Outpatient (REF) | payer BC ==
[2025-06-19 13:42] LABS: CALCIUM LEVEL 9.2 MG/DL (8.5-10.1); CARBON DIOXIDE LEVEL 28.0 MMOL/L (20-31); CHLORIDE LEVEL 102.0 MMOL/L (98-107); CREATININE FOR GFR 1.17 MG/DL (0.70-1.30); GLOMERULAR FILTRATION RATE 73.2 (>56); IRON (FE) 56.0 UG/DL (65-175); MAGNESIUM LEVEL 1.6 MG/DL (1.8-2.4); PERCENT SATURATION 17.2 % (19.7-50.0); POTASSIUM SERUM 4.8 MMOL/L (3.5-5.1); SODIUM LEVEL 139.0 MMOL/L (136-145)
[2025-06-19 13:43] LABS: PLATELET COUNT, AUTOMATED 369 10^3/uL (150-450)
[2025-06-19 13:44] LABS: VITAMIN B12 LEVEL 379.0 PG/ML (211-911)
== END ==
LOC: M SFHCADAM 08:33
PROVIDERS: ATTEND Physician Assistant Medical
DX: D50.9 Iron deficiency anemia, unspecified (principal); N17.9 Acute kidney failure, unspecified; E83.42 Hypomagnesemia

== ENCOUNTER → 2025-07-23 | Outpatient (CLI) | payer BC | LOC: M RAD 07:22 | PROVIDERS: ATTEND Physician Assistant Medical | DX: R93.2 Abnormal findings on diagnostic imaging of liver and biliary tract (principal) ==